=== PATIENT | female | born 1980 | race Caucasian/White ===

== ENCOUNTER 2017-05-18 08:09 | Inpatient (IN) | payer OTHER ==
[2017-05-18] VITALS (15 sets, daily range): BP systolic 137–168; BP diastolic 70–91; PULSE 66–95; RESP 17–20; TEMP 97.5–98.2; O2SAT 97–100
[~2017-05-18] VITALS: Ht 162.6 cm; Wt 86.0 kg
[~2017-05-18 08:09] MED LIST: PREN1CAP7 PO
[2017-05-18] MEDS ORDERED: LACTATED RINGER'S 1000 ML INJ 1,000 ML IV ONE (08:47)
[2017-05-18] MEDS ORDERED: ASPI81CH37 CHEW (09:04)
--- NOTE | 2017-05-18 09:07 | HHI.HP ---
HPI Chief Complaint Repeat and bilateral tubal ligation. Date Seen: May 18, 2017 Travel History International Travel<30 Days: No Contact w/Intl Traveler<30Days: No History of Present Illness HPI Patient is a 36 year old at 39-4/7 weeks gestation who presents today for repeat and bilateral tubal ligation. She denies any vaginal bleeding or discharge. No gush or leaking of fluid. No contractions. Positive movement. care with [facility]. History Past Medical History Medical History: Denies Significant Hx Obstetric History Obstetric History for failure to progress in 2016, weight 2270g induced hypertension during first Past Surgical History Narrative Surgical 2016 Family History Family History: Negative Social History Alcohol Use: No Tobacco Use: No Substance Abuse: No Allergies-Medications (Allergen,Severity, Reaction): Coded Allergies: No Known Allergies (Unverified , 05/16/17) Home Meds Active Scripts W/O Vit A W/ Fe Fumar (Citranatal Rosebud) 27-1-260 Mg Cap, 1 CAP PO DAILY for Nutritional Supplement, #30 CAP 0 Refills Prov:Patrick Lane MD 12/04/16 Reported Medications Aspirin (Aspirin Low Dose) 81 Mg Chew, 81 MG CHEW DAILY, TAB 0 Refills 05/18/17 Review of Systems Except as stated in HPI: all other systems reviewed are Neg General / Constitutional: No: Fever, Chills Eyes: No: Blurred Vision, Visual changes HENT: No: Headaches, Lightheadedness Cardiovascular: No: Chest Pain or Discomfort, Palpitations Respiratory: No: Cough, Short of Breath Gastrointestinal: No: Nausea, Vomiting, Abdominal Pain Genitourinary: No: Dysuria, Hematuria, Pelvic Pain, Discharge, Vaginal Bleeding Musculoskeletal: No: Edema Neurologic: No: Headache Psychiatric: No: Substance Abuse Physical Exam Vital Signs Date Time Temp Pulse Resp B/P (MAP) Pulse Ox O2 Delivery O2 Flow Rate FiO2 05/18/17 08:50 98.1 05/18/17 08:50 18 Narrative GENERAL: Well-nourished, well-developed patient. SKIN: Warm and dry. HEAD: Normocephalic and atraumatic. EYES: No scleral icterus. No injection or drainage. ENT: No nasal drainage noted. Mucous membranes pink. Airway patent. NECK: Supple, trachea midline. No JVD. CARDIOVASCULAR: Regular rate and rhythm without murmurs, gallops, or rubs. RESPIRATORY: Breath sounds equal bilaterally. No accessory muscle use. BREASTS: Bilateral exam showed no masses , no retractions, no nipple discharge. ABDOMEN/GI: Abdomen soft, non-tender, bowel sounds present, no rebound, no guarding Gravid to 39 weeks size GENITOURINARY: External Genitalia: intact and normal in appearance Presentation: Vertex Membranes: intact Uterine Contractions: none FHT's: Category: I Baseline: 140 Reactive: + Variability: moderate Decels: none EXTREMITIES: No cyanosis or edema. BACK: Nontender without obvious deformity. No CVA tenderness. NEUROLOGICAL: Awake and alert. Motor and sensory grossly within normal limits. Normal speech. Caprini VTE Risk Assessment Caprini VTE Risk Assessment: No/Low Risk (score <= 1) Caprini Risk Assessment Model Point Value = 1 Point Value = 2 Point Value = 3 Point Value = 5 Age 41-60 Minor surgery BMI > 25 kg/m2 Swollen legs Varicose veins or History of unexplained or recurrent spontaneous Oral contraceptives or hormone replacement Sepsis (< 1 month) Serious lung disease, including pneumonia (< 1 month) Abnormal pulmonary function Acute myocardial infarction Congestive heart failure (< 1 month) History of inflammatory bowel disease Medical patient at bed rest Age 61-74 Arthroscopic surgery Major open surgery (> 45 min) Laparoscopic surgery (> 45 min) Malignancy Confined to bed (> 72 hours) Immobilizing plaster cast Central venous access Age >= 75 History of VTE Family history of VTE Factor V Leiden Prothrombin 28032D Lupus anticoagulant Anticardiolipin antibodies Elevated serum homocysteine Heparin-induced thrombocytopenia Other congenital or acquired thrombophilia Stroke (< 1 month) Elective arthroplasty Hip, pelvis, or leg fracture Acute spinal cord injury (< 1 month) Prophylaxis Regimen Total Risk Factor Score Risk Level Prophylaxis Regimen 0-1 Low Early ambulation 2 Moderate Order ONE of the following: *Sequential Compression Device (SCD) *Heparin 5000 units SQ BID 3-4 Higher Order ONE of the following medications: *Heparin 5000 units SQ TID *Enoxaparin/Lovenox 40 mg SQ daily (WT < 150 kg, CrCl > 30 mL/min) *Enoxaparin/Lovenox 30 mg SQ daily (WT < 150 kg, CrCl > 10-29 mL/min) *Enoxaparin/Lovenox 30 mg SQ BID (WT < 150 kg, CrCl > 30 mL/min) AND/OR *Sequential Compression Device (SCD) 5 or more Highest Order ONE of the following medications: *Heparin 5000 units SQ TID (Preferred with Epidurals) *Enoxaparin/Lovenox 40 mg SQ daily (WT < 150 kg, CrCl > 30 mL/min) *Enoxaparin/Lovenox 30 mg SQ daily (WT < 150 kg, CrCl > 10-29 mL/min) *Enoxaparin/Lovenox 30 mg SQ BID (WT < 150 kg, CrCl > 30 mL/min) AND *Sequential Compression Device (SCD) Data Data Vital Signs Reviewed: Yes Orders Orders Admit To Inpatient (05/18/17 ) Code Status (05/18/17 08:47) Vital Signs (Adult) .ON ADMISSION (05/18/17 08:47) Activity Oob Ad Elvi (05/18/17 08:47) Heart (05/18/17 08:47) Urinary Catheter Management FAITH.Q8H (05/18/17 08:47) ^ Preps (05/18/17 08:47) Scd / Cory / Foot Pump FAITH.QSHIFT (05/18/17 08:47) ^ Ultrasound For Locatio (05/18/17 08:47) Diet Npo (05/18/17 Breakfast) Lactated Ringer's 1000 Ml Inj (Lr 1000 M (05/18/17 08:47) Lactated Ringer's 1000 Ml Inj (Lr 1000 M (05/18/17 09:17) Cefazolin 2 Gm Premix (Ancef 2 Gm Premix (05/18/17 10:00) Citric Acid-Sodium Citrate Liq (Bicitra (05/18/17 10:30) Type And Screen (05/18/17 08:47) Complete Blood Count With Diff (05/18/17 08:47) Urinalysis - C+S If Indicated (05/18/17 08:47) Inpatient Certification (05/18/17 ) Specimen To Be Collected PRN (05/18/17 08:47) Group B Strep: Negative Assessment/Plan Assessment and Plan 36 year old at 39-4/7 weeks gestation. 1. IUP- Category I tracing, reassuring. 2. Repeat and bilateral tubal ligation. 3. GBS negative. dw Mary Rucker MD, R3 May 18, 2017 09:07
[2017-05-18] MEDS ORDERED: LACTATED RINGER'S 1000 ML INJ 1,000 ML IV SCH ×2 (09:17→16:57)
[2017-05-18 09:40] LABS: BASOPHIL % 0.5 % (0.0-2.0); EOSINOPHIL # 0.1 TH/MM3 (0-0.4); EOSINOPHIL % 0.6 % (0.0-4.0); HEMATOCRIT 37.7 % (35.0-46.0); HEMO FLAGS DIFF FINAL; LYMPH % 30.5 % (9.0-44.0); LYMPHOCYTE # 2.5 TH/MM3 (1.0-4.8); MEAN CELL VOLUME 84.6 FL (80.0-100.0); MEAN CORPUSCULAR HEMOGLOBIN 28.8 PG (27.0-34.0); MONO % 7.2 % (0.0-8.0); NEUT % 61.2 % (16.0-70.0); PLATELET COUNT 135 TH/MM3 (150-450); RED BLOOD COUNT 4.45 MIL/MM3 (4.00-5.30); RED CELL DISTRIBUTION WIDTH 14.4 % (11.6-17.2); WHITE BLOOD COUNT 8.1 TH/MM3 (4.0-11.0)
[2017-05-18 09:50] LABS: BLOOD, URINE NEG (NEG); GLUCOSE,URINE NEG (NEG); KETONE, URINE NEG (NEG); NITRITE,URINE NEG (NEG); PH, URINE 6.5 (5.0-8.5); SQUAMOUS EPITHELIAL CELL URINE 81 /hpf (0-5); TRANSITIONAL EPI CELLS, URINE <1 /hpf; URINE COLOR YELLOW (YELLW/STRAW)
[2017-05-18 09:55] LABS: BACTERIA, URINE FEW /hpf; COMMENT (UR) CULT NOT INDICATED; CULTURE IF INDICATED CULT NOT INDICATED
[2017-05-18] MEDS ORDERED: ceFAZolin 2 GM PREMIX 50 ML IV SCH (10:00)
[2017-05-18] MEDS ORDERED: ceFAZolin INJ 1,000 MG VIAL ONE (10:07)
[2017-05-18] MEDS ORDERED: OXYTOCIN 10 UNIT/ML AMP ONE (10:07)
[2017-05-18] MEDS ORDERED: CITRIC ACID-SODIUM CITRATE LIQ 30 ML UDC ONE (10:07)
[2017-05-18] MEDS ORDERED: CITRIC ACID-SODIUM CITRATE LIQ 30 ML UDC PO SCH (10:30)
[2017-05-18] MEDS ORDERED: EPIDURAL-NALOXONE HCL 0.4 MG/ML AMP IV PRN (10:39)
[2017-05-18] MEDS ORDERED: EPIDURAL-DIPHENHYDRAMINE HCL 50 MG CAP PO PRN (10:39)
[2017-05-18] MEDS ORDERED: EPIDURAL-DO NOT ADMINISTER ANTICOAGULANTS PRN (10:39)
[2017-05-18] MEDS ORDERED: EPIDURAL-NO SYSTEMIC NARCOTICS PRN (10:39)
[2017-05-18] MEDS ORDERED: EPIDURAL-DIPHENHYDRAMINE HCL 50 MG/ML VIAL IV PUSH PRN (10:39)
[2017-05-18] MEDS ORDERED: ONDANSETRON HCL 4 MG/2 ML VIAL IV PUSH PRN (12:00)
[2017-05-18] MEDS ORDERED: SODIUM CHLORIDE 0.9% FLUSH 10 ML FLUSH IV FLUSH PRN (12:00)
[2017-05-18] MEDS ORDERED: OXYTOCIN 30 UNITS-500ML PREMIX 500 ML IV ONE (12:00)
[2017-05-18] MEDS ORDERED: ZOLPIDEM TARTRATE 5 MG TAB PO PRN (12:00)
[2017-05-18] MEDS ORDERED: ONDANSETRON HCL 4 MG/2 ML VIAL ONE (12:11)
[2017-05-18] MEDS ORDERED: MORPHINE SULFATE PF 5 MG/10 ML VIAL ONE (12:11)
[2017-05-18] MEDS ORDERED: ONDANSETRON HCL 4 MG/2 ML VIAL IV PUSH ONE (12:35)
[2017-05-18] MEDS ORDERED: ePHEDrine/NS 50 MG/5 ML SYR IV ONE (12:35)
[2017-05-18] MEDS ORDERED: LACTATED RINGER'S 1,000 ML BAG IV ONE (12:35)
--- NOTE | 2017-05-18 12:42 | PD.OB.DELI ---
Procedure Note Section Procedure Pre Op Diagnosis: (1) 39 weeks gestation of (2) History of low transverse section Post Op Diagnosis: (1) 39 weeks gestation of (2) History of low transverse section Performed by Dr. Hull and Dr. Lindsey Procedure: Repeat Low Transverse Sec Indication for delivery: Desired elective repeat Previous condition: Other (Failure to progress) Informed consent obtained: For anesthesia, For procedure Confirmed correct: Patient, Procedure, Site, Time-out taken Anesthesia: Spinal Medication prior to procedure: As documented in eMAR Monitoring during procedure: Blood pressure monitoring, child monitor, Pulse oximetry Urinary catheter: Inserted using sterile technique Sterile preparation: Duraprep Position: Supine with wedge to left side (Mary Lindsey MD, R3) Operative Features Skin Incision: Transverse Uterine Incision: Low transverse w/knife / blunt ext Membranes Ruptured: Artificially Presentation: Occiput anterior Delivery date: May 18, 2017 Delivery time: 11:07 Delivery of : Assisted (Vacuum assisted) Infant: Female One Minute : 9 Five Minute : 9 Weight: 2990g Status of : Viable Placenta delivered: Intact Medications: Oxytocin Estimated blood loss: 700cc Procedure tolerated: Well Maternal Condition: Stable Condition: Stable Procedure in detail After informed consent was obtained the patient was taken to the operating room where her spinal anesthesia was found to be adequate. A Llamas catheter was placed and she was then prepared and draped in the normal sterile fashion in the dorsal supine position with a leftward tilt. A Pfannenstiel/midline skin incision was then made with the scalpel and carried through to the underlying layer of fascia. The fascia was incised in the midline and extended laterally with the Gallardo scissors. The incision was then grasped with the Anny clamps, elevated and the underlying rectus muscles dissected off bluntly/sharply with the Gallardo scissors. Attention was then turned to the inferior aspect of this incision which, in a similar fashion, was grasped, tented up with the Anny clamps, and the rectus muscles dissected off bluntly/sharply with the Gallardo scissors. The rectus muscles were then in the midline, and the peritoneum identified, tented up, and entered bluntly using manual dissection. The peritoneal incision was then extended superiorly and inferiorly with good visualization of the bladder. A bladder flap was created then the bladder blade was inserted and the lower uterine segment was incised in a transverse fashion with the scalpel. The uterine incision was then extended laterally digitally and then extended laterally with bandage scissors. The bladder blade was removed then the infant's head delivered with the assistance of a Kiwi vacuum, atraumatically. Cord clamping was delayed for 45 seconds then the cord was cut and the was handed off the field to the awaiting baby nurse. The placenta was then removed, the uterus exteriorized, and cleared of all clots and debris. The uterine incision was repaired with 0 Monocryl in a running fashion. A second layer of the same suture was used in an imbricating fashion to obtain excellent hemostasis. Next, attention was paid to the Bilateral Tubal ligation. Pipestone clamp placed in the mid fallopian tube and elevated. Cautery was used to make a window in the avascular segment of the mesosalpinx. 0 plain gut was used and mid fallopian tube transection performed. This tubal ligation procedure was done in a bilateral fashion. Upon completion of tubal ligation, the abdominal cavity was cleaned with a moist lap and the uterus was replaced into the abdomen. The gutters were cleared of all clots and debris the hysterotomy site was noted to be hemostatic after placement of several figure of eight sutures using 0 Monocryl. The fascia was then reapproximated with #1 PDS in a running fashion. The subcutaneous tissue was closed with 3-0 Vicryl, the skin was closed with 4- 0 Vicryl in a subcuticular fashion noting excellent hemostasis. Dermabond was placed along the length of the incision. The patient tolerated the procedure well. Sponge, lap and needle counts were correct times two. The patient was taken to the recovery room in stable condition. (Mary Lindsey MD, R3) Attestation Patient seen and evaluated with resident under direct supervision, agree with assessment and plan. (Jose Hull MD) Mary Lindsey MD, R3 May 18, 2017 12:42 Jose Hull MD May 18, 2017 18:21
[2017-05-18] MEDS ORDERED: OXYTOCIN 30 UNITS-500ML PREMIX 500 ML ONE (12:52)
--- NOTE | 2017-05-18 14:08 | PD.OP ---
Attestation I was the attending surgeon for this surgery and was present for the entirety of the case. Operative Report Date of Surgery: May 18, 2017 Preoperative Diagnosis: Postoperative Diagnosis: Procedure: Repeat Low Transverse Section and Bilateral Tubal Ligation Surgeon: Jose Hull Well Logger(s): Leda Rajan Resident Surgeon: Mary Lindsey Operation and Findings: Preoperative Diagnosis: 1. Repeat Delivery 2. Bilateral Tubal Ligation 3. Intrauterine at 39-4/7 weeks gestation Postoperative Diagnosis: 1. Repeat Delivery 2. Bilateral Tubal Ligation 3. Intrauterine at 39-4/7 weeks gestation Procedure Repeat low transverse section and bilateral tubal ligation Anesthesia Spinal Surgeon Jose Hull MD Co-Surgeon Mary Lindsey MD Findings Normal female infant 2990g with Apgars 9 and 9. Normal fallopian tubes, normal ovaries, normal uterus. Complications None. Counts Correct Estimated Blood Loss 700mL Fluids Crystalloids. Disposition The patient tolerated procedure well, went to recovery room in good condition. Procedure in Detail After informed consent was obtained the patient was taken to the operating room where her spinal anesthesia was found to be adequate. A Llamas catheter was placed and she was then prepared and draped in the normal sterile fashion in the dorsal supine position with a leftward tilt. A Pfannenstiel/midline skin incision was then made with the scalpel and carried through to the underlying layer of fascia. The fascia was incised in the midline and extended laterally with the Gallardo scissors. The incision was then grasped with the Anny clamps, elevated and the underlying rectus muscles dissected off bluntly/sharply with the Gallardo scissors. Attention was then turned to the inferior aspect of this incision which, in a similar fashion, was grasped, tented up with the Anny clamps, and the rectus muscles dissected off bluntly/sharply with the Gallardo scissors. The rectus muscles were then in the midline, and the peritoneum identified, tented up, and entered bluntly using manual dissection. The peritoneal incision was then extended superiorly and inferiorly with good visualization of the bladder. A bladder flap was created then the bladder blade was inserted and the lower uterine segment was incised in a transverse fashion with the scalpel. The uterine incision was then extended laterally digitally and then extended laterally with bandage scissors. The bladder blade was removed then the 's head delivered with the assistance of a Kiwi vacuum, atraumatically. Cord clamping was delayed for 45 seconds then the cord was cut and the was handed off the field to the awaiting baby nurse. The placenta was then removed, the uterus exteriorized, and cleared of all clots and debris. The uterine incision was repaired with 0 Monocryl in a running fashion. A second layer of the same suture was used in an imbricating fashion to obtain excellent hemostasis. Next, attention was paid to the Bilateral Tubal ligation. Ho clamp placed in the mid fallopian tube and elevated. Cautery was used to make a window in the avascular segment of the mesosalpinx. 0 plain gut was used and mid fallopian tube transection performed. This tubal ligation procedure was done in a bilateral fashion. Upon completion of tubal ligation, the abdominal cavity was cleaned with a moist lap and the uterus was replaced into the abdomen. The gutters were cleared of all clots and debris the hysterotomy site was noted to be hemostatic after placement of several figure of eight sutures using 0 Monocryl. The fascia was then reapproximated with #1 PDS in a running fashion. The subcutaneous tissue was closed with 3-0 Vicryl, the skin was closed with 4- 0 Vicryl in a subcuticular fashion noting excellent hemostasis. Dermabond was placed along the length of the incision. The patient tolerated the procedure well. Sponge, lap and needle counts were correct times two. The patient was taken to the recovery room in stable condition. Mary Lindsey MD, R3 May 18, 2017 14:08 Jose Hull MD May 18, 2017 18:23
[2017-05-18] MEDS ORDERED: PROMETHAZINE INJ 25 MG/ML VIAL IM PRN (14:30)
[2017-05-18] MEDS ORDERED: SODIUM CHLORIDE 0.9% FLUSH 10 ML FLUSH IV FLUSH SCH (21:00)
[2017-05-18] MEDS ORDERED: OXYTOCIN 30 UNITS-500ML PREMIX 500 ML IV PRN (22:00)
[2017-05-18] MEDS: DOCUSATE SODIUM 50 MG/SENNA 8.6 MG TAB PO PRN (22:14)
[2017-05-18] MEDS: IBUPROFEN 600 MG TAB PO PRN (22:14)
[2017-05-18] MEDS: oxyCODONE/ACETAMINOPHEN 5 MG/325 MG TAB PO PRN (22:14)
[2017-05-19] VITALS: BP 142/75; PULSE 84; RESP 18; TEMP 98
[2017-05-19 02:00] VITALS: RESP 16
[2017-05-19 04:00] VITALS: BP 122/71; PULSE 80; RESP 18; TEMP 97.9
[2017-05-19] MEDS: IBUPROFEN 600 MG TAB PO PRN ×4 (04:36→22:27)
[2017-05-19] MEDS: oxyCODONE/ACETAMINOPHEN 5 MG/325 MG TAB PO PRN ×4 (04:36→22:27)
[2017-05-19 09:00] VITALS: BP 117/61; PULSE 79; RESP 18; TEMP 97.7
[2017-05-19] MEDS ORDERED: INFLUENZA VIRUS VACCINE (QUADRIVALENT) 0.5 ML SYR IM ONE (09:00)
--- NOTE | 2017-05-19 09:25 | HHI.OB ---
Subjective Post Operative Day: 1 Remarks Patient is a 36-year-old delivered at 39 weeks and 4 days. Patient is postop day 1 after . Patient's pain is well-controlled. Patient reports eating and drinking without any nausea or vomiting. Patient reports minimal bleeding. Patient has not passed gas or bowel movements. Patient is walking without lower extremity pain or shortness of breath. Patient reports contraception with tubal ligation and both bottle- and breast-feeding. ([place] Ko MD R2) Remarks Patient seen and evaluated with resident under direct supervision, agree with assessment and plan. (Jose Hull MD) Objective Vitals/I&O Vital Signs Date Time Temp Pulse Resp B/P (MAP) Pulse Ox O2 Delivery O2 Flow Rate FiO2 05/19/17 04:00 122/71 (88) 05/19/17 04:00 97.9 80 18 05/19/17 02:00 16 05/19/17 00:00 98.0 84 18 142/75 (97) 05/19/17 00:00 98.0 84 18 142/75 (97) 05/18/17 20:00 98.2 90 20 137/84 (101) 05/18/17 13:35 66 18 145/84 (104) 05/18/17 13:35 97.5 05/18/17 13:05 98.0 05/18/17 13:02 95 17 100 05/18/17 13:01 163/91 (115) 05/18/17 12:46 92 18 147/77 (100) 05/18/17 12:46 100 05/18/17 12:33 100 05/18/17 12:30 17 05/18/17 12:30 77 149/82 (104) 05/18/17 12:20 78 17 100 05/18/17 12:20 157/75 (102) 05/18/17 12:05 97.8 97 05/18/17 12:05 68 18 168/70 (102) 05/18/17 10:10 79 05/18/17 10:05 80 05/18/17 10:00 78 ([place] Ko MD R2) Result Diagram: 05/18/17 09 Objective Remarks GENERAL: Well-nourished, well-developed patient. CARDIOVASCULAR: Regular rate and rhythm without murmurs, gallops, or rubs. RESPIRATORY: Breath sounds equal bilaterally. No accessory muscle use. ABDOMEN/GI: Abdomen soft, non-tender, bowel sounds present. Incision: Clean, dry and intact. Fundus: Firm, non-tender at umbilicus. GENITOURINARY: Light to moderate bleeding. EXTREMITIES: No cyanosis or edema, non-tender, without signs of DVT. Medications and IVs Current Medications Medications (Trade) Dose Ordered Sig/Julito Route Start Time Stop Time Status Last Admin Lactated Ringer's 1,000 ml @ 150 mls/hr Q6H40M IV 05/18/17 09:17 05/18/17 09:17 Cefazolin Sodium/ Dextrose 50 ml @ 100 mls/hr STREET [employer] BUILDING DECORATOR IV 05/18/17 10:00 05/22/17 09:59 (Bicitra Liq) [address] [employer] BUILDING DECORATOR PO 05/18/17 10:30 05/22/17 10:29 Lactated Ringer's 1,000 ml @ 100 mls/hr Q10H IV 05/18/17 16:57 05/19/17 12:56 Oxytocin 500 ml @ 100 mls/hr UNSCH X1 PRN IV 05/18/17 22:00 05/19/17 21:59 (NS Flush) 2 ml BID IV FLUSH 05/18/17 21:00 (NS Flush) 2 ml UNSCH PRN IV FLUSH 05/18/17 12:00 (Motrin) 600 mg Q6H PRN PO 05/18/17 12:00 05/19/17 04:36 (Percocet 5-325 Mg) 1 tab Q4H PRN PO 05/18/17 12:00 (Percocet 5-325 Mg) 2 tab Q4H PRN PO 05/18/17 12:00 05/19/17 04:36 (Amada-Colace) 2 tab Q12H PRN PO 05/18/17 12:00 05/18/17 22:14 (Ambien) 5 mg HS PRN PO 05/18/17 12:00 (M-M-R Ii Inj) 0.5 ml ONCE ONCE SQ 05/19/17 16:00 05/19/17 16:01 (Boostrix Inj) 0.5 ml ONCE ONCE IM 05/19/17 16:00 05/19/17 16:01 (Zofran Inj) 4 mg Q6H PRN IV PUSH 05/18/17 12:00 Miscellaneous Information NO SYSTEMIC NARCOTICS TO BE GIVEN FO... UNSCH PRN .XX 05/18/17 10:39 05/19/17 10:38 (Narcan Inj) 0.4 mg UNSCH PRN IV 05/18/17 10:39 05/19/17 10:38 (Benadryl Inj) 25 mg Q6H PRN IV PUSH 05/18/17 10:39 05/19/17 10:38 (Benadryl) 50 mg Q6H PRN PO 05/18/17 10:39 05/19/17 10:38 05/18/17 19:14 Miscellaneous Information ALL NURSING DEPARTMENTS UNSCH PRN .XX 05/18/17 10:39 05/19/17 10:38 (Phenergan Inj) 25 mg Q6H PRN IM 05/18/17 14:30 05/18/17 15:00 ([place] Ko MD R2) Assessment/Plan Problem List: (1) S/P ICD Codes: Z98.891 - History of uterine scar from previous surgery Assessment and Plan Patient is a 36-year-old delivered at 39 weeks and 4 days. Patient is postop day 1 after . Patient was counseled to do 6 weeks of pelvic rest. Patient was counseled to follow up for an incision check in one week and again in 6 weeks. Patient requested follow-up and has had tubal ligation this admission for contraception. --AF VSS (overnight, blood pressure ranged from 120s to 140s over 70s to 80s) --Continue routine care --Motrin and Percocet when necessary for pain --Encourage OOB --Pelvic rest for 6 weeks will need follow-up appointment at that time. Incision check in one week. --Contraception: Patient is status post tubal ligation this admission --Anticipate discharge tomorrow or the next day d/w Dr. Hull ([place] Ko MD R2) [place] Ko MD R2 May 19, 2017 09:25 Jose Hull MD May 25, 2017 17:40
[2017-05-19 10:22] LABS: BASOPHIL % 0.1 % (0.0-2.0); EOSINOPHIL % 0.3 % (0.0-4.0); HEMATOCRIT 32.5 % (35.0-46.0); HEMO FLAGS DIFF FINAL; LYMPHOCYTE # 2.3 TH/MM3 (1.0-4.8); MEAN CELL VOLUME 85.8 FL (80.0-100.0); MEAN CORPUSCULAR HEMOGLOBIN 29.1 PG (27.0-34.0); MEAN CORPUSCULAR HGB CONC 33.9 % (32.0-36.0); MONO % 5.8 % (0.0-8.0); NEUT % 70.8 % (16.0-70.0); PLATELET COUNT 104 TH/MM3 (150-450); RED BLOOD COUNT 3.79 MIL/MM3 (4.00-5.30); RED CELL DISTRIBUTION WIDTH 14.5 % (11.6-17.2); WHITE BLOOD COUNT 9.9 TH/MM3 (4.0-11.0)
[2017-05-19] MEDS: DOCUSATE SODIUM 50 MG/SENNA 8.6 MG TAB PO PRN ×2 (10:28→22:27)
[2017-05-19] MEDS ORDERED: MEASLES, MUMPS, RUBELLA VACCINE 0.5 ML VIAL SQ ONE (16:00)
[2017-05-19] MEDS ORDERED: DIPHTH/TETANUS/ACEL PERTUSSIS (BOOSTER) 0.5 ML VIAL/PFS IM ONE (16:00)
[2017-05-19 16:30] VITALS: BP 121/67; PULSE 81; RESP 18; TEMP 98.1
[2017-05-19 20:35] VITALS: BP 135/87; PULSE 83; RESP 20; TEMP 98.8
[2017-05-20] MEDS: oxyCODONE/ACETAMINOPHEN 5 MG/325 MG TAB PO PRN ×2 (04:38→10:10)
[2017-05-20] MEDS: IBUPROFEN 600 MG TAB PO PRN ×2 (04:38→10:10)
[2017-05-20 08:30] VITALS: BP 131/83; PULSE 83; RESP 18; TEMP 98.5
[2017-05-20] MEDS ORDERED: IBUP-232 PO (08:41)
[2017-05-20] MEDS ORDERED: OXYC1TAB63 PO (08:41)
--- NOTE | 2017-05-20 08:42 | HHI.DCPOC ---
Discharge Care Plan Diagnosis: (1) HTN in , chronic (2) S/P Report Symptoms to Your Doctor -Temperature above 100.5 degrees -Redness, of incision or excessive or foul smelling drainage -Unusual pain or calf pain -Increased vaginal bleeding -Painful or difficulty urinating -Feelings of extreme sadness or anxiety after 2 weeks Goals to Promote Your Health * To prevent worsening of your condition and complications, please follow-up with your doctor. * To maintain your health at the optimal level, please follow your doctor's instructions. Directions to Meet Your Goals Take your medications as prescribed Follow your dietary instruction Follow activity as directed Ensure plenty of rest for recovery Drink fluids for hydration Keep your appointments as scheduled Take your immunizations and boosters as scheduled If your symptoms worsen call your PCP, if no PCP go to Urgent Care Center or Emergency Room Smoking is Dangerous to Your Health. Avoid second hand smoke Call the 24-hour crisis hotline for domestic abuse at [place] Ko MD R2 May 20, 2017 08:42
--- NOTE | 2017-05-20 09:06 | HHI.OB ---
Subjective Post Operative Day: 2 Remarks Patient is a 36-year-old delivered at 39 weeks and 4 days. Patient is postop day 2 after . Patient's pain is well-controlled. Patient reports eating and drinking without any nausea or vomiting. Patient reports minimal bleeding. Patient has passed gas and bowel movements. Patient is walking without lower extremity pain or shortness of breath. Patient reports contraception with tubal ligation and both bottle- and breast-feeding. Objective Vitals/I&O Vital Signs Date Time Temp Pulse Resp B/P (MAP) Pulse Ox O2 Delivery O2 Flow Rate FiO2 05/19/17 20:35 98.8 83 20 135/87 (103) 05/19/17 16:30 98.1 81 18 121/67 (85) Result Diagram: 05/19/17 0956 Objective Remarks GENERAL: Well-nourished, well-developed patient. CARDIOVASCULAR: Regular rate and rhythm without murmurs, gallops, or rubs. RESPIRATORY: Breath sounds equal bilaterally. No accessory muscle use. ABDOMEN/GI: Abdomen soft, non-tender, bowel sounds present. Incision: Clean, dry and intact. Fundus: Firm, non-tender at umbilicus. GENITOURINARY: Light to moderate bleeding. EXTREMITIES: 2+ pitting edema bilaterally. No cyanosis, non-tender, without signs of DVT. Medications and IVs Current Medications Medications (Trade) Dose Ordered Sig/Julito Route Start Time Stop Time Status Last Admin Lactated Ringer's 1,000 ml @ 150 mls/hr Q6H40M IV 05/18/17 09:17 05/18/17 09:17 Cefazolin Sodium/ Dextrose 50 ml @ 100 mls/hr CONTRACT LAW SPECIALIST IV 05/18/17 10:00 05/22/17 09:59 (Bicitra Liq) 30 ml CONTRACT LAW SPECIALIST PO 05/18/17 10:30 05/22/17 10:29 (NS Flush) 2 ml BID IV FLUSH 05/18/17 21:00 (NS Flush) 2 ml UNSCH PRN IV FLUSH 05/18/17 12:00 (Motrin) 600 mg Q6H PRN PO 05/18/17 12:00 05/20/17 04:38 (Percocet 5-325 Mg) 1 tab Q4H PRN PO 05/18/17 12:00 05/20/17 04:38 (Percocet 5-325 Mg) 2 tab Q4H PRN PO 05/18/17 12:00 05/19/17 22:27 (Amada-Colace) 2 tab Q12H PRN PO 05/18/17 12:00 05/19/17 22:27 (Ambien) 5 mg HS PRN PO 05/18/17 12:00 (Zofran Inj) 4 mg Q6H PRN IV PUSH 05/18/17 12:00 (Phenergan Inj) 25 mg Q6H PRN IM 05/18/17 14:30 05/18/17 15:00 Assessment/Plan Problem List: (1) S/P ICD Codes: Z98.891 - History of uterine scar from previous surgery Assessment and Plan Patient is a 36-year-old delivered at 39 weeks and 4 days. Patient is postop day 2 after . Patient was counseled to do 6 weeks of pelvic rest. Patient was counseled to follow up for an incision check in one week and again in 6 weeks. Patient requested follow-up and has had tubal ligation this admission for contraception. --AF VSS (overnight, blood pressure ranged from 117-142/61-87) --Continue routine care --Motrin and Percocet when necessary for pain --Encourage OOB --Pelvic rest for 6 weeks will need follow-up appointment at that time. Incision check in one week. --Contraception: Patient is status post tubal ligation this admission --Anticipate discharge today d/w Dr. Harvinder Ko,[place] Teixeira MD R2 May 20, 2017 09:06
[2017-05-20 13:25] VITALS: BP 138/84
[2017-06-28] MEDS ORDERED: AUGM500T7 PO (13:48)
== END 2017-05-20 15:11 | disposition home or self-care (01) | DRG 766 ==
LOC: H2EB 08:37 → H1EA 13:24
PROVIDERS: ADMIT Obstetrics & Gynecology; ATTEND Obstetrics & Gynecology
PROC: 0UB70ZZ Excision of Bilateral Fallopian Tubes, Open Approach (ICD-10-PCS; principal; 2017-05-18)
PROC: 10D00Z1 Extraction of Products of Conception, Low, Open Approach (ICD-10-PCS; 2017-05-18)
DX: O34.211 Maternal care for low transverse scar from previous cesarean delivery (principal); Z30.2 Encounter for sterilization; Z37.0 Single live birth; Z3A.39 39 weeks gestation of pregnancy
CPT/HCPCS: 59025; 81001; 85025; 86850; 86900; 86901; 88302; J0690; J2274; J2405; J2550; J2590; J3010; J7120; Q0163